=== PATIENT | female | born 1990 | race Caucasian/White ===

== ENCOUNTER 2024-04-06 18:18 | Emergency (ER) | payer MEDICAID, SELFPAY ==
--- NOTE | ~2024-04-06 | US_ITS ---
CLINICAL HISTORY: vaginal spotting US OB 1st trimester transabdominalAnd transvaginal Comparison: None Findings: Possible gestational sac near the uterine fundus measuring 2 mm. Echogenic material in the uterine cavity and in the endometrium adjacent to the gestational sac consistent with perigestational hemorrhage. No pole in the gestational sac. Both ovaries normal in size and appearance. IMPRESSION: Possible tiny gestational sac in the uterine fundus with perigestational and intrauterine cavity hemorrhage. Findings are worrisome for active miscarriage. This document has been electronically signed by: Frederic Galdamez MD on 04/06/2024 21:18:10
[2024-04-06 18:25] VITALS: BP 132/89; PULSE 94; RESP 20; TEMP 36.5; O2SAT 100; BMI 30.2
--- NOTE | 2024-04-06 18:28 | ED.GENADULT ---
HPI - General Adult General Chief complaint: Abdominal Pain Stated complaint: +preg/abd pain-bleeding History of Present Illness HPI narrative: Patient left before completion of treatment by ED provider. Related Data Allergies Allergy/AdvReac Type Severity Reaction Status Date / Time aspirin Allergy Unknown Verified 04/06/24 18:26 [facility] Social History Social History Advance Directives: No Advance Directives Information Provided: No Physical Exam ED Vital Signs: Vital Signs - 24 hr 04/06/24 18:25 Temperature 97.7 F Pulse Rate 94 Respiratory Rate 20 Blood Pressure 132/89 Pulse Oximetry 100 Oxygen Delivery Method Room Air BMI result Body Mass Index 30.2 Course Course Course Narrative: RME: 33-year-old patient is presents to ED for vaginal spotting and lower abdominal cramping. Presents for allergic. Two days ago. Labs ultrasound ordered. Medical Decision Making Lab Data 04/06/24 18:52 04/06/24 18:52 Labs: Lab Results 04/06/24 Range/Units 18:52 WBC 8.6 (4.8-10.8) X10*3/uL RBC 4.48 (4.20-5.50) X10*6/uL Hgb 14.2 (12.0-16.0) g/dl Hct 41.7 (37.0-47.0) % MCV 93.1 (80.0-98.0) fL MCH 31.7 (27.0-33.0) pg MCHC 34.1 (31.0-35.0) g/dl RDW 14.2 (11.0-16.0) % Plt Count 353 (160-400) X10*3/uL MPV 8.9 L (9.4-12.3) fL Immature Gran % (Auto) 0.4 (0.0-0.4) % Neut % (Auto) 55.8 (45-73) % Lymph % (Auto) 33.4 (20-40) % [place] % (Auto) 8.1 (2-11) % Eos % (Auto) 1.8 (0-4) % Baso % (Auto) 0.5 (0-2) % Lymph # (Auto) 2.9 (1.2-4.9) X10*3/uL [place] # (Auto) 0.7 (0.1-1.2) X10*3/uL Eos # (Auto) 0.2 (0.0-0.4) X10*3/uL Baso # (Auto) 0.0 (0.0-0.2) X10*3/uL Abs Immat Gran (auto) 0.03 (0.00-0.03) X10*3/uL Absolute Neuts (auto) 4.8 (2.0-8.3) x10*3/uL Absolute Nucleated RBC 0.000 (0.0-0.012) X10*3/uL Nucleated RBC % (auto) 0.0 (0.0-0.2) /100WBC PT 11.6 (10.9-12.4) SEC INR 1.0 (0.9-1.1) APTT 30.4 (26.0-36.8) SEC Sodium 136 (135-145) mmol/L Potassium 4.1 (3.3-5.1) mmol/L Chloride 107 (96-108) mmol/L Carbon Dioxide 25 (22-29) mmol/L Anion Gap 8 L (12-20) BUN 9 (9-16) mg/dL Creatinine 0.69 (0.5-1.4) mg/dL Estim Creat Clear Calc 103.6 Estimated GFR > 60 Random Glucose 102 (60-115) mg/dL Calcium 9.5 (8.4-10.2) mg/dL Total Bilirubin 0.7 (0.0-1.0) mg/dL AST 31 (5-31) U/L ALT 41 H (0-31) U/L Alkaline Phosphatase 85 (39-117) U/L Total Protein 8.2 H (6.5-8.0) g/dL Albumin 4.2 (3.5-5.0) g/dL Lipase 23 (8-78) U/L Beta HCG, Quant 801 mIU/mL Blood Type A Positive Discharge Plan Discharge Clinical Impression: Patient Disposition: Left W/O Completing Treatment Discharge Date/Time: 04/06/24 23:47
[2024-04-06 19:02] LABS: MANUAL DIFF FLAG NO
[2024-04-06 19:04] LABS: Basophils Percent Auto 0.5 % (0-2); Eosinophils Absolute Auto 0.2 X10*3/uL (0.0-0.4); Eosinophils Percent Auto 1.8 % (0-4); Hematocrit 41.7 % (37.0-47.0); Hemoglobin 14.2 g/dl (12.0-16.0); Imm Gran Abs Auto 0.03 X10*3/uL (0.00-0.03); Imm Gran Pct Auto 0.4 % (0.0-0.4); Lymphocytes Absolute Auto 2.9 X10*3/uL (1.2-4.9); Lymphocytes Percent Auto 33.4 % (20-40); Mean Corpuscular HGB Conc 34.1 g/dl (31.0-35.0); Mean Corpuscular Hemoglobin 31.7 pg (27.0-33.0); Mean Corpuscular Volume 93.1 fL (80.0-98.0); Mean Platelet Volume 8.9 fL (9.4-12.3); Monocytes Absolute Auto 0.7 X10*3/uL (0.1-1.2); Monocytes Percent Auto 8.1 % (2-11); Neutrophils Absolute Auto 4.8 x10*3/uL (2.0-8.3); Neutrophils Percent Auto 55.8 % (45-73); Platelet Count 353 X10*3/uL (160-400); Red Blood Count 4.48 X10*6/uL (4.20-5.50); Red Cell Distribution Width 14.2 % (11.0-16.0); White Blood Count 8.6 X10*3/uL (4.8-10.8)
[2024-04-06 19:10] LABS: Prothrombin Time 11.6 SEC (10.9-12.4)
[2024-04-06 19:12] LABS: Partial Thromboplastin Time 30.4 SEC (26.0-36.8)
[2024-04-06 19:18] LABS: Alanine Aminotransferase 41 U/L (0-31); Albumin Level 4.2 g/dL (3.5-5.0); Alkaline Phosphatase 85 U/L (39-117); Anion Gap 8 (12-20); Aspartate Amino Transferase 31 U/L (5-31); Bilirubin Total 0.7 mg/dL (0.0-1.0); Blood Urea Nitrogen 9 mg/dL (9-16); Calcium 9.5 mg/dL (8.4-10.2); Carbon Dioxide 25 mmol/L (22-29); Chloride 107 mmol/L (96-108); Creatinine Clr Calc Pharmacy 103.6; Estimated Glomerular Filt Rate > 60; Glucose Random 102 mg/dL (60-115); Potassium 4.1 mmol/L (3.3-5.1); Sodium 136 mmol/L (135-145); Total Protein 8.2 g/dL (6.5-8.0)
[2024-04-06 19:21] LABS: Lipase 23 U/L (8-78)
[2024-04-06 19:24] LABS: HCG Quantitative 801 mIU/mL
== END 2024-04-06 23:47 | disposition left against medical advice (07) ==
PROVIDERS: Physician Assistant; Emergency Provider Emergency Medicine
DX: O26.851 Spotting complicating pregnancy, first trimester (principal); Z3A.01 Less than 8 weeks gestation of pregnancy
CPT/HCPCS: 36415; 76801; 76817; 80053; 83690; 84702; 85025; 85610; 85730; 86900; 86901; 99281; 99284

== ENCOUNTER 2024-12-06 15:17 | Outpatient (REF) | payer MEDICAID, SELFPAY ==
[2024-12-06 15:34] LABS: MANUAL DIFF FLAG NO
[2024-12-06 16:11] LABS: Hematocrit 40.6 % (37.0-47.0); Hemoglobin 13.9 g/dl (12.0-16.0); Imm Gran Abs Auto 0.02 X10*3/uL (0.00-0.03); Imm Gran Pct Auto 0.2 % (0.0-0.4); Lymphocytes Absolute Auto 3.8 X10*3/uL (1.2-4.9); Mean Corpuscular HGB Conc 34.2 g/dl (31.0-35.0); Mean Corpuscular Hemoglobin 32.0 pg (27.0-33.0); Mean Corpuscular Volume 93.5 fL (80.0-98.0); NRBC Abs Auto 0.000 X10*3/uL (0.0-0.012); NRBC Pct Auto 0.0 /100WBC (0.0-0.2); Platelet Count 358 X10*3/uL (160-400); Red Blood Count 4.34 X10*6/uL (4.20-5.50); White Blood Count 9.5 X10*3/uL (4.8-10.8)
[2024-12-06 17:04] LABS: Potassium 4.2 mmol/L (3.3-5.1); Sodium 138 mmol/L (135-145)
[2024-12-06 17:05] LABS: Alanine Aminotransferase 20 U/L (0-31); Albumin Level 4.2 g/dL (3.5-5.0); Alkaline Phosphatase 91 U/L (39-117); Anion Gap 11 (12-20); Aspartate Amino Transferase 27 U/L (5-31); Blood Urea Nitrogen 11 mg/dL (9-16); Calcium 9.9 mg/dL (8.4-10.2); Carbon Dioxide 27 mmol/L (22-29); Chloride 104 mmol/L (96-108); Cholesterol 179 mg/dL (<200); Estimated Glomerular Filt Rate > 60; HDL Cholesterol 45 mg/dL (>40); Total Protein 7.8 g/dL (6.5-8.0); Triglycerides 102 mg/dL (<150)
--- OUTSIDE RECORDS SUMMARY | 2024-12-06 20:44 | XMS_ITS | Clinical Summary ---
Author Organization [place] [id number] [address] [facility] Address [address] [place] [address] Phone Care Team Providers Care Client Experience Consultant Name Role Phone Marylin Alex MD Primary Care Provider [phone] Social History Tobacco Use Types Packs/Day Years Used Date Smoking Tobacco: Never Assessed Comments Unknown Sex and Gender Information Value Date Recorded Sex Assigned at Not on file Legal Sex Female 6:14 PM EDT Gender Identity Not on file Sexual Orientation Not on file Plan of Treatment Upcoming Encounters Date Type Department Care Team (Late st Contact Info) Description 03/31/2025 4:00 PM EST Office Visit Internal Medicine - [address] [phone] Marylin Alex MD [address] [place] [address] Health Maintenance Due Date Last Done Comments DTaP,Tdap,and Td Vaccines (1 - Tdap) 07/04/2007 Hepatitis B Vaccines (1 of 3 - 19+ 3-dose series) 07/04/2007 Cervical Cancer Screening: P ap Smear 2009 Depression Screening 03/24/2024 HIV Screening 06/17/2024 Hepatitis C Screening 06/17/2024 Social Influencers of Health Screening 06/17/2024 COVID-19 Vaccine (1 - 2023-2 5 season) 2024 Influenza Vaccine (#1) 2024 HIB Vaccines Aged Out No longer eligi ble based on patient's age to complete this topic HPV Vaccines Aged Out No longer eligi ble based on patient's age to complete this topic Hepatitis A Vaccines Aged Out No long er eligible based on patient's age to complete this topic IPV Vaccines Aged Out No longer eligi ble based on patient's age to complete this topic MMR Vaccines Aged Out No longer eligi ble based on patient's age to complete this topic Meningococcal ACWY Vaccine Aged Out N o longer eligible based on patient's age to complete this topic Meningococcal B Vaccine Aged Out No l onger eligible based on patient's age to complete this topic Pneumococcal Vaccine: Pediat rics (0 to 5 Years) and At-Risk Patients (6 to 49 Years) Aged Out No longer eligible b ased on patient's age to complete this topic RSV Immunization Patients Un twin 20 months Aged Out No longer eligible b ased on patient's age to complete this topic Varicella Vaccines Aged Out No longer eligible based on patient's age to complete this topic Insurance [facility] Care Teams Client Experience Consultant Relationship Specialty Start Date End Date Marylin Alex MD [address] [place] [phone] PCP - General Internal Medicine 09/03/24
== END 2024-12-06 15:18 | disposition home or self-care (01) ==
LOC: HO.LAB 15:17
PROVIDERS: PCP Internal Medicine; Visit Provider Internal Medicine
DX: Z00.00 Encounter for general adult medical examination without abnormal findings (principal); L50.5 Cholinergic urticaria; E66.812 Obesity, class 2; Z13.31 Encounter for screening for depression
CPT/HCPCS: 36415; 80053; 80061; 84443; 85025

== ENCOUNTER 2025-01-20 12:39 | Outpatient (REF) | payer MEDICAID, SELFPAY ==
--- NOTE | 2025-01-20 | EMG_ITS ---
Chief complaint:?G56.01 Carpal tunnel syndrome, right Reason for referral: Numbness in the right hand Referred by:?Danis Stroud MD Procedure done: Right upper extremity NCS/EMG Right median and ulnar motor studies were performed right median and ulnar mixed sensory studies were performed right median and ulnar ortho sensory studies were performed radial sensory studies were was performed. EMG needle examination was performed. Findings: Right median motor distal latencies was moderately prolonged. Right median mixed distal latencies was moderately prolonged with slightly slow conduction velocity. Right median 2nd digit ortho sensory conduction velocity was also slow. Impression: [id number] right median neuropathy across carpal tunnel [place] [id number] 1 extremity MTDD
== END 2025-01-20 12:40 | disposition home or self-care (01) ==
LOC: HO.NEURO 12:39
PROVIDERS: PCP Internal Medicine; Visit Provider Internal Medicine
DX: G56.01 Carpal tunnel syndrome, right upper limb (principal)
CPT/HCPCS: 95886; 95910

== ENCOUNTER → 2025-01-20 13:00 | Outpatient (BNV) | payer MEDICAID, SELFPAY | PROVIDERS: PCP Internal Medicine; Visit Provider Psychiatry & Neurology Neurology | DX: G56.01 Carpal tunnel syndrome, right upper limb (principal) | CPT/HCPCS: 95886; 95910 ==